=== PATIENT | female | born 2000 ===

== ENCOUNTER 2022-04-23 03:52 | Emergency (ER) | payer SELFPAY ==
[~2022-04-23] VITALS: Ht 165.1 cm; Wt 43.2 kg
[2022-04-23 03:54] VITALS: BP 120/83
[2022-04-23] MEDS ORDERED: METR-265 PO (04:05)
[2022-04-23] MEDS ORDERED: LO LTAB PO (04:05)
[2022-04-23] MEDS ORDERED: PANT40TA29 PO (04:05)
[2022-04-23] MEDS ORDERED: CLAR500T97 PO (04:05)
== END 2022-04-23 05:50 | disposition left against medical advice (07) ==
LOC: M ED 03:52
DX: Z53.29 Procedure and treatment not carried out because of patient's decision for other reasons (principal)